=== PATIENT | male | born 1975 | race Caucasian/White ===

== ENCOUNTER 2020-06-06 14:52 | Inpatient (IN) | payer MEDICAID ==
[~2020-06-06] VITALS: Ht 175.3 cm; Wt 88.0 kg
[2020-06-06] MEDS ORDERED: SODIUM CHLORIDE 0.9% 1,000 ML IV ONE (16:18)
[2020-06-06] MEDS ORDERED: NITROGLYCERIN 0.4MG TABLET SL SL PRN (16:30)
[2020-06-06] MEDS ORDERED: ASPIRIN 81MG TABLET PO ONE (16:30)
[2020-06-06 17:24] LABS: BASOPHILS % 0.2 % (0.0-2.0); EOSINOPHILS % 0.3 % (0.0-5.0); HEMATOCRIT. 44.5 % (42.0-52.0); HEMOGLOBIN. 15.5 g/dL (14.0-18.0); LYMPHOCYTES % 15.5 % (20.0-50.0); MEAN CORPUSCULAR VOLUME 94.8 fL (80.0-94.0); MEAN PLATELET VOLUME 9.6 fl (7.4-10.4); MONOCYTES % 6.8 % (2.0-8.0); NEUTROPHILS % 77.2 % (40.0-76.0); PLATELET 226 x1000/uL (130-400); RED BLOOD CELL COUNT 4.69 mill/uL (4.7-6.1); RED CELL DISTRIBUTION WIDTH 12.8 % (11.6-14.6)
[2020-06-06 17:29] LABS: CHLORIDE 108 mEq/L (98-107)
[2020-06-06 17:34] LABS: D-DIMER 0.5 mg/L FEU (<0.50); PARTIAL THROMBOPLASTIN TIME 27.7 sec (23.4-31.0); PROTHROMBIN TIME 10.9 sec (9.6-11.0)
[2020-06-06] MEDS ORDERED: MAGNESIUM/ALUMINUM HYDROXIDE/SIMETHICONE 30ML UDC PO PRN (19:00)
[2020-06-06] MEDS ORDERED: ACETAMINOPHEN 650MG SUPP PR PRN ×2 (19:00)
[2020-06-06] MEDS ORDERED: DIPHENHYDRAMINE 50MG/ML VIAL IV PRN (19:00)
[2020-06-06] MEDS ORDERED: DOCUSATE SODIUM 100MG CAPSULE PO PRN (19:00)
[2020-06-06] MEDS ORDERED: NA PHOS,M-B/NA PHOS,DI-BA ENEMA 118ML PR PRN (19:00)
[2020-06-06] MEDS ORDERED: GUAIFENESIN 200MG/10ML SUGAR FREE UDC PO PRN (19:00)
[2020-06-06] MEDS ORDERED: CLONIDINE 0.1MG TABLET PO PRN (19:00)
[2020-06-06] MEDS ORDERED: ONDANSETRON HCL 4MG/2ML INJ IV PRN (19:00)
[2020-06-06] MEDS ORDERED: HYDROCODONE/ACETAMINOPHEN 5/325MG TABLET PO PRN (19:00)
[2020-06-06] MEDS ORDERED: ACETAMINOPHEN 325MG TABLET PO PRN ×2 (19:00)
[2020-06-06] MEDS ORDERED: ACETAMINOPHEN 650MG/20.3ML UDC GT PRN ×2 (19:00)
[2020-06-06] MEDS: ENOXAPARIN 40MG/0.4ML SYR SUBCUT SCH (20:24)
[2020-06-06 23:02] VITALS: BP 125/77
[2020-06-07] VITALS: BP 114/72
[2020-06-07 00:06] LABS: CREATINE KINASE 395 IU/L (39-308)
[2020-06-07 00:07] LABS: CREATINE KINASE MB FRACTION 2.3 ng/mL (0.5-3.6)
[2020-06-07 04:00] VITALS: BP 114/73
[2020-06-07 07:10] LABS: BASOPHILS % 0.5 % (0.0-2.0); EOSINOPHILS % 2.1 % (0.0-5.0); HEMATOCRIT. 41.9 % (42.0-52.0); HEMOGLOBIN. 14.6 g/dL (14.0-18.0); LYMPHOCYTES % 31.6 % (20.0-50.0); MEAN CORPUSCULAR HEMOGLOBIN 33.2 pg (28.0-32.0); MEAN PLATELET VOLUME 9.3 fl (7.4-10.4); MONOCYTES % 10.9 % (2.0-8.0); NEUTROPHILS % 54.9 % (40.0-76.0); PLATELET 206 x1000/uL (130-400); RED BLOOD CELL COUNT 4.41 mill/uL (4.7-6.1); RED CELL DISTRIBUTION WIDTH 12.8 % (11.6-14.6)
[2020-06-07 07:29] LABS: CHLORIDE 107 mEq/L (98-107)
[2020-06-07 07:44] LABS: CREATINE KINASE 327 IU/L (39-308)
[2020-06-07 07:45] LABS: HDL CHOLESTEROL 57 mg/dL (40-59); LDL CHOLESTEROL 123 mg/dL (5-100)
[2020-06-07 07:50] LABS: CREATINE KINASE MB FRACTION 1.9 ng/mL (0.5-3.6)
[2020-06-07 08:00] VITALS: BP 114/69
[2020-06-07] MEDS ORDERED: PNEUMOCOCCAL 23-VAL P-SAC VAC 0.5 ML IM ONE (08:00)
[2020-06-07 12:00] VITALS: BP 144/91
[2020-06-07 12:19] LABS: CLARITY URINE CLEAR (CLEAR); COLOR URINE YELLOW (YELLOW); KETONES URINE NEGATIVE (NEGATIVE); LEUKOCYTE ESTERASE URINE NEGATIVE (NEGATIVE); NITRITE URINE NEGATIVE (NEGATIVE); OCCULT BLOOD URINE NEGATIVE (NEGATIVE); PROTEIN URINE NEGATIVE (NEGATIVE); SPECIFIC GRAVITY URINE 1.016 (1.005-1.030)
[2020-06-07 12:30] LABS: T4 FREE 1.21 ng/dL (0.76-1.46)
[2020-06-07 12:33] LABS: *BENZODIAZEPINES SCREEN URINE NEGATIVE (NEGATIVE); *COCAINE SCREEN URINE NEGATIVE (NEGATIVE); CANNABINOID URINE SCREEN NEGATIVE (NEGATIVE); OPIATES URINE SCREEN NEGATIVE (NEGATIVE); PHENCYCLIDINE URINE SCREEN NEGATIVE (NEGATIVE)
[2020-06-07 12:34] LABS: *AMPHETAMINES SCREEN URINE NEGATIVE (NEGATIVE); METHADONE URINE SCREEN NEGATIVE (NEGATIVE)
[2020-06-07 12:41] LABS: *BARBITURATES SCREEN URINE NEGATIVE (NEGATIVE)
[2020-06-07] MEDS: PANTOPRAZOLE SODIUM 40 MG/VIAL IV SCH (13:10)
[2020-06-07] MEDS: SIMETHICONE 80MG TABLET CHEW PO SCH ×3 (13:10→21:02)
[2020-06-07 15:38] LABS: CREATINE KINASE 289 IU/L (39-308)
[2020-06-07 15:39] LABS: CREATINE KINASE MB FRACTION 1.3 ng/mL (0.5-3.6)
[2020-06-07 16:00] VITALS: BP 119/71
[2020-06-07 20:00] VITALS: BP 117/85
[2020-06-07] MEDS: ENOXAPARIN 40MG/0.4ML SYR SUBCUT SCH (21:03)
[2020-06-07 23:52] LABS: CREATINE KINASE 275 IU/L (39-308)
[2020-06-07 23:53] LABS: CREATINE KINASE MB FRACTION 1.1 ng/mL (0.5-3.6)
[2020-06-08] VITALS: BP 105/69
[2020-06-08 04:00] VITALS: BP 104/65
[2020-06-08 08:00] VITALS: BP 110/71
[2020-06-08 08:03] LABS: CREATINE KINASE 218 IU/L (39-308)
[2020-06-08 08:04] LABS: CREATINE KINASE MB FRACTION < 1.0 ng/mL (0.5-3.6)
[2020-06-08] MEDS: PANTOPRAZOLE SODIUM 40 MG/VIAL IV SCH (08:12)
[2020-06-08] MEDS: SIMETHICONE 80MG TABLET CHEW PO SCH (08:13)
[2020-06-08] MEDS ORDERED: PANT40SU MT (11:18)
[2020-06-09] MEDS ORDERED: FAMOTIDINE 20MG TABLET PO SCH (07:10)
== END 2020-06-08 13:00 | disposition home or self-care (01) | DRG 241 ==
LOC: ER 14:52 → 8WST 18:20 → ENRESERV 20:28 → 8WST 21:25
PROVIDERS: ADMIT Family Medicine; ATTEND Family Medicine
DX: K29.70 Gastritis, unspecified, without bleeding (principal); R06.2 Wheezing; R10.9 Unspecified abdominal pain; Z79.1 Long term (current) use of non-steroidal anti-inflammatories (NSAID); Z79.899 Other long term (current) drug therapy; E87.8 Other disorders of electrolyte and fluid balance, not elsewhere classified
CPT/HCPCS: 36415; 71045; 71275; 80053; 80061; 80305; 81003; 82550; 82553; 83036; 83880; 84439; 84443; 84484; 85025; 85379; 93005; 93306; 99285; C9113; J1650; J7030